=== PATIENT | female | born 1970 | race African-American/Black ===

== ENCOUNTER 2024-09-22 12:27 | Emergency (ER) | payer OTHER, SELFPAY ==
[2024-09-22 12:33] VITALS: BP 167/95; PULSE 94; TEMP 36.6; O2SAT 98; BMI 23.8
--- NOTE | 2024-09-22 14:49 | ECG_ITS ---
[facility] Test Date: 2024-09-22 Pat Name: ZOILA ROMERO Department: Room: - Gender: Female [employer]: : 1970 Requested By: Order Number: [id number] Reading MD: ALISA HANSON Measurements Intervals [place] Rate: 91 P: 60 AK: 120 QRS: 27 QRSD: 84 T: 70 QT: 350 QTc: 398 Interpretive Statements 1100 Sinus rhythm 9110 normal ECG No previous ECG available for comparison Electronically Signed On 09-22-2024 20:05:57 EST by ALISA HANSON
== END 2024-09-22 14:53 | disposition left against medical advice (07) ==
PROVIDERS: Emergency Provider Student in an Organized Health Care Education/Training Program
DX: Z53.21 Procedure and treatment not carried out due to patient leaving prior to being seen by health care provider (principal); R41.9 Unspecified symptoms and signs involving cognitive functions and awareness; R00.0 Tachycardia, unspecified; I10 Essential (primary) hypertension
CPT/HCPCS: 80053; 83880; 84443; 84484; 85610; 93005